=== PATIENT | female | born 1960 | race Caucasian/White ===

== ENCOUNTER 2019-10-24 10:00 | Outpatient (CLI) | payer OTHER, SELFPAY ==
--- NOTE | 2019-10-24 10:04 | XR_ITS ---
WS: [id number] Lumbar spine, 3 views, 10/24/2019 Clinical Data: BACK PAIN Comparison: Lumbar spine x-ray, 03/05/2012. Findings: No compression fractures or subluxation is seen. There is moderate disc space narrowing at L4-L5 and L5-S1.. The transverse processes and SI joints are normal. Minimal anterior osteoarthritic spurring i s seen at L3, L4 and L5. There are clips in the right upper abdomen from a cholecystectomy. There is a moderate amount of feca l material throughout the colon. XR/XR lumbar spine 2-3V* [id number] Impression: 1. Degenerative disc disease at L4-L5 and L5-S1. 2. Minimal osteoarthritis at L3, L4 and L5.
== END 2019-10-24 10:01 | disposition home or self-care (01) ==
LOC: RAD 10:02
PROVIDERS: Family Provider Family Medicine; PCP Family Medicine; Visit Provider Dermatology
DX: M47.896 Other spondylosis, lumbar region (principal); M54.5 Low back pain
CPT/HCPCS: 72100

== ENCOUNTER 2020-04-02 10:16 | Outpatient (CLI) | payer MEDICAID, SELFPAY ==
--- NOTE | 2020-04-02 10:24 | MM_ITS ---
WS: [id number] BILATERAL DIGITAL SCREENING MAMMOGRAPHY WITH CAD CLINICAL INFORMATION: SCREENING HISTORY: Screening mammogram. No current complaints. COMPARISON: September 11, 2018 TECHNIQUE: Bilateral CC and MLO views. FINDINGS: Scattered fibroglandular densities bilaterally. Progressed slightly spiculated asymmetric density upp er outer right breast measuring 12 mm more prominent compared to previous. Recommend further evaluati on with spot compression views and ultrasound if persistent. Stable incidental intramammary lymph nodes. Punctate calcifications bilaterally. Vascular calcificati on. MM/[id number] IMPRESSION: BI-RADS: 0-Incomplete: Need additional imaging evaluation FOLLOW UP: Need Additional Imaging
== END 2020-04-02 10:17 | disposition home or self-care (01) ==
LOC: RADSHAW 10:22
PROVIDERS: PCP Family Medicine; Visit Provider Family Medicine
DX: Z12.31 Encounter for screening mammogram for malignant neoplasm of breast (principal); N64.89 Other specified disorders of breast
CPT/HCPCS: 77067

== ENCOUNTER 2020-04-29 08:58 | Outpatient (CLI) | payer MEDICAID, SELFPAY ==
--- NOTE | 2020-04-29 09:01 | US_ITS ---
WS: [id number] RIGHT DIGITAL MAMMOGRAPHY WITH.CAD CLINICAL INFORMATION: RT BREAST ASYMMETRIC DENSITY COMPARISON: April 02, 2020 TECHNIQUE: 3 views of the right breast were obtained. FINDINGS: The right breast is composed of scattered fibroglandular densities. Previously described 12 mm slight ly spiculated asymmetric density upper outer right breast partially compresses out on the spot compre ssion views. Ultrasound is pending. No other abnormalities. ULTRASOUND BREAST RIGHT TECHNIQUE: Ultrasound right breast focused area of concern. CLINICAL INFORMATION: RT BREAST ASYMMETRIC DENSITY COMPARISON: None. FINDINGS: Ultrasound right breast 9-12 o'clock. No evidence of pathologic mass or lesion. No lesions to target for biopsy. A few incidental lymph nodes and a few tiny cysts are visualized at the 9:00 and 10 posit ion. Recommend return to annual screening mammography. US/US breast RT limited* [id number] IMPRESSION: BI-RADS: 2-Benign FOLLOW UP: 1 Year Follow-up Recommend return to annual screening mammography.
== END 2020-04-29 08:59 | disposition home or self-care (01) ==
LOC: RADSHAW 09:00
PROVIDERS: PCP Family Medicine; Visit Provider Family Medicine
DX: N64.89 Other specified disorders of breast (principal)
CPT/HCPCS: 76642; 77065

== ENCOUNTER 2021-05-03 07:53 | Outpatient (CLI) | payer MEDICAID, SELFPAY ==
--- NOTE | 2021-05-03 07:59 | MM_ITS ---
WS: [id number] BILATERAL DIGITAL SCREENING MAMMOGRAPHY WITH CAD CLINICAL INFORMATION: SCREENING HISTORY: Screening mammogram. No current complaints. COMPARISON: April 02, 2020 TECHNIQUE: Bilateral CC and MLO views. FINDINGS: Scattered fibroglandular densities bilaterally. No suspicious focal mass, asymmetry, calcifications, or architectural distortion. No evidence of malignancy. Punctate and lucent centered calcifications. Stable clustered calcifications. Vascular calcification. A few intramammary lymph nodes. MM/[id number] IMPRESSION: BI-RADS: 2-Benign FOLLOW UP: 1 Year Follow-up Recommend return to annual screening mammography.
== END 2021-05-03 07:54 | disposition home or self-care (01) ==
LOC: RADSHAW 07:56
PROVIDERS: PCP Family Medicine; Visit Provider Family Medicine
DX: Z12.31 Encounter for screening mammogram for malignant neoplasm of breast (principal)
CPT/HCPCS: 77067

== ENCOUNTER 2022-05-16 13:07 | Outpatient (CLI) | payer MEDICAID, SELFPAY ==
--- NOTE | 2022-05-16 13:21 | MM_ITS ---
WS: [id number] BILATERAL 3D TOMOSYNTHESIS DIGITAL SCREENING MAMMOGRAPHY WITH CAD CLINICAL INFORMATION: SCREENING HISTORY: Screening mammogram. No current complaints. COMPARISON: May 03, 2021 TECHNIQUE: Bilateral CC and MLO views. FINDINGS: Scattered fibroglandular densities bilaterally. Incidental punctate calcifications. Stable clustered calcifications LEFT breast. Vascular calcification. No suspicious focal mass, asymmetry, calcificatio ns, or architectural distortion. No evidence of malignancy. MM/[place] [id number] IMPRESSION: BI-RADS: 2-Benign FOLLOW UP: 1 Year Follow-up Recommend return to annual screening mammography.
== END 2022-05-16 13:08 | disposition home or self-care (01) ==
LOC: RAD 13:07
PROVIDERS: PCP Family Medicine; Visit Provider Family Medicine
DX: Z12.31 Encounter for screening mammogram for malignant neoplasm of breast (principal)
CPT/HCPCS: 77063; 77067

== ENCOUNTER 2022-10-05 13:22 | Outpatient (CLI) | payer MEDICAID, SELFPAY ==
--- NOTE | 2022-10-05 13:32 | XR_ITS ---
WS: [id number] SCREENING DEXA SCAN Lumiary CLINICAL INFORMATION: POSTMENOPAUSAL COMPARISON: None FINDINGS: The L1-L4 bone mineral density measures 1.263 g/cm2. This corresponds to a T score score of 0.7 and Z score of 0.8. Left femoral neck bone mineral density measures 1.131 g/cm2. This corresponds to a T score of 1.0 and Z score of 1.1. Right femoral neck bone mineral density measures 1.089 g/cm2. This corresponds to a T score 0.6of and Z score of 0.8. Mean femoral neck bone mineral density measures 1.110 g/cm2. This corresponds to a T score of 0.8 and Z score of 1.0. XR/XR DEXA axial skeleton* [id number] IMPRESSION: Normal bone mineralization in the lumbar spine and femoral necks. Patient's FRAX calculated 10 year probability for major osteoporotic fracture i s 5.4 % and osteoporotic hip fracture is 0.2%.
== END 2022-10-05 13:23 | disposition home or self-care (01) ==
LOC: RAD 13:24
PROVIDERS: PCP Family Medicine; Visit Provider Family Medicine
DX: Z78.0 Asymptomatic menopausal state (principal)
CPT/HCPCS: 77080